=== PATIENT | female | born 1960 | race Caucasian/White ===

== ENCOUNTER 2017-01-25 07:13 | Day surgery (SDC) | payer BC ==
[~2017-01-25 07:13] MED LIST: AMBIEN CR12.5 MG PO; CHANTIX0.5 MG/TAB PO; EFFEXOR XR150 M1 PO; FISH OIL300 M1 PO; LASIX20 M1 PO; LEXAPRO5 MG PO; LOTREL 10-20 M1 EACH PO; LOTREL 5-10 MG1 EACH PO; MUCINEX D ER T1 EAC1 PO; MULTI-VITAMIN1 TAB PO; NORCO 5/325 TAB1 TAB PO; NORVASC5 M2 PO; POTASSIUM CHLO20 ME3 PO; PRILOSEC OTC20 M1 PO; SPIRIVA18 MC1 INH; SYMBICORT 80-41 PUFF INH
[2017-08-13] MEDS ORDERED: CHEMO MED (15:52)
== END 2017-01-25 11:40 ==
LOC: SRG 07:13 → SHSB 07:16 → ORW 08:58 → PACU 10:09 → SHSB 10:45
PROC: 0HBU0ZZ Excision of Left Breast, Open Approach (ICD-10-PCS; principal; 2017-01-25)
DX: D05.12 Intraductal carcinoma in situ of left breast (principal); Z79.899 Other long term (current) drug therapy; Z88.6 Allergy status to analgesic agent; Z88.8 Allergy status to other drugs, medicaments and biological substances
CPT/HCPCS: J0690

== ENCOUNTER 2017-02-16 05:34 | Day surgery (SDC) | payer BC ==
[2017-08-13] MEDS ORDERED: CHEMO MED (15:52)
== END 2017-02-16 11:25 ==
LOC: SRG 05:34 → SHSB 05:37 → ORW 07:57 → PACU 08:37 → SHSB 09:20
PROC: 0HBU0ZZ Excision of Left Breast, Open Approach (ICD-10-PCS; principal; 2017-02-16)
DX: C50.412 Malignant neoplasm of upper-outer quadrant of left female breast (principal); I10 Essential (primary) hypertension; E78.5 Hyperlipidemia, unspecified; M19.90 Unspecified osteoarthritis, unspecified site; F32.9 Major depressive disorder, single episode, unspecified; G47.00 Insomnia, unspecified; J45.909 Unspecified asthma, uncomplicated; J44.9 Chronic obstructive pulmonary disease, unspecified; G47.30 Sleep apnea, unspecified; K21.9 Gastro-esophageal reflux disease without esophagitis; F10.10 Alcohol abuse, uncomplicated; F17.210 Nicotine dependence, cigarettes, uncomplicated; Z79.899 Other long term (current) drug therapy; Z88.1 Allergy status to other antibiotic agents; Z88.5 Allergy status to narcotic agent; Z88.8 Allergy status to other drugs, medicaments and biological substances; Z90.89 Acquired absence of other organs; Z98.1 Arthrodesis status; Z98.890 Other specified postprocedural states
CPT/HCPCS: J0690; J1885; J3010